=== PATIENT | female | born 1985 | race Caucasian/White ===

== ENCOUNTER 2018-12-05 21:03 | Emergency (ER) | payer MEDICAID, OTHER ==
[~2018-12-05] VITALS: Ht 157.5 cm; Wt 120.0 kg
[~2018-12-05 21:03] MED LIST: FERR159T PO; METF500T PO; NAPR-985 PO; PNV1TABL50 PO
[2018-12-05 21:08] VITALS: Ht 157.5 cm; Wt 120.0 kg
[2018-12-05] MEDS ORDERED: ACETAMINOPHEN 325 MG TAB PO ONE (23:30)
[2018-12-06 00:55] VITALS: BP 133/79; PULSE 90; RESP 18
--- NOTE | 2018-12-06 01:28 | ERD ---
ER Documentation Chief Complaint Chief Complaint twisted left ankle about 1700 HPI Patient is a otherwise healthy 33-year-old female presenting to the emergency department complaining of inversion injury to the left ankle at 1700 today. Pain is 8/10 in severity and worse with walking. She tried no medication for r elief of symptoms. She denies any full fall, head pain, loss of consciousness, or other symptoms at this time. ROS All systems reviewed and are negative except as per history of present illness. Medications Home Meds Active Scripts Naproxen* (Naprosyn*) 500 Mg Tablet, 500 MG PO BID PRN for PAIN AND/OR INFLAMMATION, #30 TAB Prov:VEENA FLOOD PA-C 12/06/18 Reported Medications Metformin Hcl (Glucophage) 500 Mg Tablet, 350 MG PO HS 09/18/13 Ferrous Sulfate, Dried (Iron) 159 Mg Tablet.er, 325 MG PO DAILY 04/28/13 Pnv With Ca,No.71/Iron/Fa (PRENAPLUS TABLET) 1 Each Tablet, 1 EACH PO DAILY 04/28/13 Allergies Allergies: Coded Allergies: Apricot (Verified Allergy, Severe, 04/28/13) THROAT SWELLING AND MOUTH SWELLING shellfish derived (Verified Allergy, Severe, 04/28/13) SHRIMP= THROAT SWELLING AND MOUTH SWELLING PMhx/Soc Medical and Surgical Hx: pt denies Medical Hx, pt denies Surgical Hx History of Surgery: No Anesthesia Reaction: No Hx Neurological Disorder: No Hx Respiratory Disorders: No Hx Cardiac Disorders: No Hx Psychiatric Problems: No Hx Miscellaneous Medical Probl: No Hx Alcohol Use: No Hx Substance Use: No Hx Tobacco Use: No Smoking Status: Never smoker FmHx Family History: No diabetes Physical Exam Vitals Vital Signs Date Temp Pulse Resp B/P (MAP) Pulse Ox O2 O2 Flow FiO2 Time Delivery Rate 12/06/18 98.8 90 18 133/79 98 00:55 (97) 12/05/18 99.3 105 20 134/85 99 21:08 (101) Physical Exam Const: No acute distress Head: Atraumatic Eyes: Normal Conjunctiva ENT: Normal External Ears, Nose and Mouth. Neck: Full range of motion. No meningismus. Resp: No respiratory distress. Skin: No petechiae or rashes Back: No midline or flank tenderness Ext: Tenderness palpation and edema to the left lateral malleolus. Limited range of motion secondary to pain. Sensation intact to the left lower extremity. Neur: Awake and alert Psych: Normal Mood and Affect Results 24 hrs Laboratory Tests Test 12/05/18 23:37 POC Beta HCG, Qualitative NEGATIVE Current Medications Medications Dose Sig/Michael Start Time Status Last (Trade) Ordered Route PRN Stop Time Admin Dose Reason Admin 650 mg ONCE ONCE 12/05/18 DC 12/05/18 Acetaminophen PO 23:30 23:34 (Tylenol 12/05/18 23:31 Tab) [place] [id number] Radiology Main Line: [phone] DIAGNOSTIC IMAGING REPORT Patient: JEF WU : 1985 Age: 33 Sex: F MR #: [id number] DOS: 12/05/18 0000 Ordering MD: VEENA FLOOD PA-C Location: [facility] Room/Bed: PROCEDURE: XR Ankle. CLINICAL INDICATION: Left ankle pain. TECHNIQUE: Three views of the left ankle were performed. COMPARISON: None. FINDINGS: No acute fracture or dislocation is seen. The ankle mortise is symmetric. No radiopaque foreign body is identified. Mild lateral ankle soft tissue swelling is noted. IMPRESSION: 1. No acute fracture or dislocation. 2. Mild lateral ankle soft tissue swelling. RPTAT: HFN .Rody Gonzales MD, MD Date Time Electronically viewed and signed by .Rody Gonzales MD, MD on 12/06/2018 00:16 .N/ CC: VEENA FLOOD PA-C [phone] Procedures/MDM 33-year-old female presents to the emergency department with signs, symptoms, work-up most consistent with left ankle sprain. No evidence of fracture. Patient required Ivan wrap for immobilization of the joint due to pain and soft tissue swelling. Splint Assessment: Neurovascularly intact post splint placement with good fit. Patient's extremity symptoms have stabilized while they have been evaluated in the department and are appropriate for outpatient follow up. No evidence of compartment syndrome, neurologic injury, vascular injury, open joint, open fracture, tendon laceration, or foreign body. No evidence of life-threatening pathology at time of discharge. Pt/family in agreement with discharge plan/diagnosis. Pt/family advised to return immediately with any new or worsening symptoms. Follow-up with primary care physician within the next 1-2 days. Patient's blood pressure was elevated (>120/80) but appears stable without evidence of hypertension emergency or urgency. The patient is to follow-up and pursue outpatient monitoring and therapy with their primary care physician within 1 week and return immediately if they have any new, worsening, or concerning symptoms. Departure Diagnosis: Primary Impression: Left ankle sprain Encounter type: initial encounter Involved ligament of ankle: unspecified ligament Qualified Codes: S93.402A - Sprain of unspecified ligament of left ankle, initial encounter Condition: Fair Patient Instructions: Treating Ankle Sprains Referrals: [facility] YOU HAVE RECEIVED A MEDICAL SCREENING EXAM AND THE RESULTS INDICATE THAT YOU DO NOT HAVE A CONDITION THAT REQUIRES URGENT TREATMENT IN THE EMERGENCY DEPARTMENT. FURTHER EVALUATION AND TREATMENT OF YOUR CONDITION CAN WAIT UNTIL YOU ARE SEEN IN YOUR DOCTORS OFFICE WITHIN THE NEXT 1-2 DAYS. IT IS YOUR RESPONSIBILITY TO MAKE AN APPOINTMENT FOR FOLOW-UP CARE. IF YOU HAVE A PRIMARY DOCTOR --you should call your primary doctor and schedule an appointment IF YOU DO NOT HAVE A PRIMARY DOCTOR YOU CAN CALL OUR PHYSICIAN REFERRAL HOTLINE AT IF YOU CAN NOT AFFORD TO SEE A PHYSICIAN YOU CAN CHOSE FROM THE FOLLOWING [facility] [address] [facility]. [facility] [address] [facility] [facility] [address] [facility] [facility] [address] [facility] [address] [facility]. [facility]. [address] Additional Instructions: Call your primary care doctor TOMORROW for an appointment during the next 1-2 days.See the doctor sooner or return here if your condition worsens before your appointment time. VEENA FLOOD PA-C Dec 06, 2018 01:28
== END 2018-12-06 00:56 | disposition home or self-care (01) ==
LOC: FTE 21:03
DX: S93.402A Sprain of unspecified ligament of left ankle, initial encounter (principal); X50.1XXA Overexertion from prolonged static or awkward postures, initial encounter; Y92.9 Unspecified place or not applicable; Z79.84 Long term (current) use of oral hypoglycemic drugs
CPT/HCPCS: 73610; 81025; Z7502; Z7610